=== PATIENT | female | born 1970 | race Caucasian/White ===

== ENCOUNTER 2018-07-18 19:39 | Emergency (ER) | payer MEDICAID ==
[~2018-07-18] VITALS: Ht 170.2 cm; Wt 99.8 kg
[2018-07-18 19:40] VITALS: BP_SYST 129
--- NOTE | 2018-07-18 19:40 | NUR ---
Patient to ER bed 6 to gown for evaluation. Side rails up. Report given to Isma HALEY.
--- NOTE | 2018-07-18 19:50 | NUR ---
ER JD Shah at bedside evaluating the patient
[2018-07-18 20:00] LABS: BILIRUBIN,URINE NEGATIVE (NEGATIVE); CLARITY/URINE HAZY (CLEAR); COLOR,URINE YELLOW (YELLOW); GLUCOSE,URINE TRACE (NEGATIVE); KETONES,URINE NEGATIVE (NEGATIVE); LEUKOCYTE ESTERASE ,URINE 3+ (NEGATIVE); NITRITE, URINE POSITIVE (NEGATIVE); PROTEIN URINE NEGATIVE (NEGATIVE); UROBILINOGEN,URINE 0.2 (0.2-1.0)
--- NOTE | 2018-07-18 20:00 | NUR ---
PAT[place] [facility] [place] [facility] [place]ED IN BED 5. MONGOLIAN SPEAKING. C/O BACK PAIN.
--- NOTE | 2018-07-18 20:00 | NUR ---
annika simon master in chancery at bedside with patient and pourer metal. patient given diagnosis, information regarding treatment plan, prescriptions, and given opportunity to ask questions.
[2018-07-18 20:01] LABS: BLOOD, URINE TRACE (NEGATIVE)
[2018-07-18 20:06] LABS: RBC,URINE 0-3 /HPF (0-3)
[2018-07-18 20:07] LABS: BACTERIA,URINE MANY /HPF (None Seen); MUCUS,URINE 1+ /LPF (None Seen); WBC,URINE >100 /HPF (0-3)
[2018-07-18] MEDS ORDERED: cefTRIAXone 1 GM in D5W 50 ML IV ONE (20:30)
[2018-07-18] MEDS ORDERED: NACL 0.9% 1,000 ML IV ONE (20:30)
[2018-07-18] MEDS ORDERED: cefTRIAXone 1 GM VIAL ONE (20:30)
[2018-07-18] MEDS ORDERED: PHENAZOPYRIDINE HCL 100 MG TABLET PO ONE (20:30)
[2018-07-18] MEDS ORDERED: KETOROLAC TROMETHAMINE 30 MG VIAL IVP ONE (20:30)
--- NOTE | 2018-07-18 21:48 | NUR ---
Patient given written and verbal discharge instructions and verbalizes understanding. Dr Capps, ER MD, discussed with patient the results and treatment provided. Patient in stable condition. ID arm band removed. IV catheter removed intact and dressing applied, no active bleeding. Rx of pyridium, zofran, cipro, and motrin given. Patient educated on pain management and to follow up with PMD. Pain Scale 0/10. Opportunity for questions provided and answered. Medication side effect fact sheet provided.
[2018-07-18 21:50] VITALS: BP_SYST 122
--- NOTE | 2018-07-21 12:34 | NUR ---
Final C & S report shows E. coli that show intermittent resistance to Cipro as previously prescribed. Patient was contacted by Jason HALEY, for translation to croatian, patient reports that she has fever, low back pain and hematuria. Patient was advised to return to ER for further evaluation and likely medication change.
== END 2018-07-18 21:48 | disposition home or self-care (01) ==
LOC: SED 19:39
DX: N10 Acute pyelonephritis (principal); R68.83 Chills (without fever); R03.0 Elevated blood-pressure reading, without diagnosis of hypertension
CPT/HCPCS: 36415; 81000; 81025; 87040; 87086; 87186; 96365; 96375; 99284; J0696; J1885; J7030

== ENCOUNTER 2018-07-21 16:05 | Emergency (ER) | payer MEDICAID ==
[~2018-07-21] VITALS: Ht 160 cm; Wt 81.6 kg
[2018-07-21 16:13] VITALS: BP_SYST 142
[2018-07-21 17:03] LABS: BILIRUBIN,URINE NEGATIVE (NEGATIVE); BLOOD, URINE 3+ (NEGATIVE); GLUCOSE,URINE NEGATIVE (NEGATIVE); KETONES,URINE TRACE (NEGATIVE); LEUKOCYTE ESTERASE ,URINE NEGATIVE (NEGATIVE); NITRITE, URINE NEGATIVE (NEGATIVE); PH,URINE 5.5 (5.0-8.0); PROTEIN URINE NEGATIVE (NEGATIVE); UROBILINOGEN,URINE 0.2 (0.2-1.0)
[2018-07-21 17:11] LABS: CLARITY/URINE HAZY (CLEAR); COLOR,URINE AMBER (YELLOW)
[2018-07-21 17:12] LABS: BACTERIA,URINE FEW /HPF (None Seen); MUCUS,URINE None Seen /LPF (None Seen); RBC,URINE >100 /HPF (0-3); WBC,URINE 0-3 /HPF (0-3)
[2018-07-21] MEDS ORDERED: IBUPROFEN 800 MG TABLET PO ONE (17:30)
== END 2018-07-21 18:03 | disposition home or self-care (01) ==
LOC: SED 16:05
DX: N39.0 Urinary tract infection, site not specified (principal); R03.0 Elevated blood-pressure reading, without diagnosis of hypertension
CPT/HCPCS: 81000-TC; 81025; 99283

== ENCOUNTER 2019-01-24 03:13 | Emergency (ER) | payer MEDICAID ==
[~2019-01-24] VITALS: Ht 160 cm; Wt 80.7 kg
[2019-01-24 03:38] VITALS: BP_SYST 121
[2019-01-24] MEDS ORDERED: DEXAMETHASONE SOD PHOSPHATE 10 MG/ML VIAL IM ONE (04:45)
[2019-01-24 05:24] VITALS: BP_SYST 123
== END 2019-01-24 05:24 | disposition home or self-care (01) ==
LOC: SED 03:13
DX: J45.909 Unspecified asthma, uncomplicated (principal); R09.81 Nasal congestion; Z91.09 Other allergy status, other than to drugs and biological substances
CPT/HCPCS: 96372; 99283; J1100